=== PATIENT | male | born 1985 | race African-American/Black ===

== ENCOUNTER → 2016-05-12 | Day surgery (SDC) | payer BC ==
[~2016-05-12] MED LIST: ACETAMINOPHEN/HYDROcodone 325 MG/5 MG TAB ONE; BUPIVACAINE/EPINEPHRINE 0.5% PF 30 ML VIAL ONE; EPINEPHrine HCL (1:1000) 30 MG/30 ML VIAL ONE; HYDR-3366 PO; KETOROLAC TROMETHAMINE 30 MG/ML (IVP) VIAL IV PUSH ONE; LACTATED RINGER'S 1000 ML INJ 1,000 ML ONE; MIDAZOLAM HCL 2 MG/2 ML VIAL ONE; ONDANSETRON HCL 4 MG/2 ML VIAL IV PUSH ONE; PROPOFOL 200 MG/20 ML AMP IV ONE; TRIAMCINOLONE ACETONIDE 40 MG/ML VIAL ONE; WALKER WHEELS/F1 MIS; WHEEMIS3; ceFAZolin INJ 1,000 MG VIAL ONE
--- NOTE | 2016-05-14 05:34 | MP ---
cc: IVA BONNER M.D. DATE OF SURGERY May 12, 2016. 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 SURGEON Iva Bonner MD [employer] [employer] MANAGER Jordon Harmon, [employer] PROCEDURE Left knee arthroscopy with lysis of adhesions in all three compartments as well as manipulation under anesthesia. ANESTHESIA General anesthesia. TOURNIQUET TIME 0 minutes PROCEDURE The patient was brought back to the operative theatre, received intravenous antibiotics. Exam under anesthesia showed the patient's range of motion was 0 to 45 degrees and then he had a very tight ending to the flexion endpoint. The left lower extremity was prepped and draped in the usual sterile fashion. We made standard inferolateral portal followed by inferomedial portal under spinal needle visualization. We identified significant amount of adhesions within the suprapatellar pouch and also within the medial lateral gutters. There was some adhesions noted around the patella fat pad as well. We used a combination of oscillating shaver and arthroscopic Bovie to release all the adhesions within the medial and lateral gutters and the suprapatellar pouch. We got down to through the periosteum of the distal femur to lift up those adhesions and remove them and make sure there were no further attachments to the bone. The gutters again were freed from the adhesions mostly with the use of the arthroscopic wand. We evaluated the medial and lateral compartments both of which did not show any significant arthritis nor meniscal tears. The anterior cruciate ligament was found to be intact. We used oscillating shaver to debride some of the fibrotic fat pad as well. We achieved hemostasis with the wand. We made sure there were no loose bodies in the knee. We then manipulated the knee which now had gravity flexion to easily 65 degrees. We flexed the knee and then we easily were able to get up to 120 degrees of flexion, just limited by the drapes. We did take the knee out of the leg thomas when we did this. We then gave intraarticular injection with 0.25% Marcaine with 40 mg of Kenalog. All portals were closed with 2-0 Vicryl followed by 3-0 nylon. Note that we also made two accessory portals, one superomedial and one superolateral. This helped us get access to these areas of adhesion and reduced chance of injury to cartilage. Note that when we did inspect the patellofemoral joint itself, we did see any significant chondromalacia either. After the leg was dressed, he was brought to the recovery room in stable condition. Postoperative plan is early range of motion. MD RAYMON Rice/TMI /3:57 PM /5:24 AM
== END | disposition home or self-care (01) ==
LOC: ESDC 13:49
PROVIDERS: ATTEND Orthopaedic Surgery
DX: M24.662 Ankylosis, left knee (principal)
CPT/HCPCS: 01400; 29884; J0171; J0690; J1885; J2250; J2405; J3010; J3301; J7120